=== PATIENT | male | born 1970 | race Caucasian/White ===

== ENCOUNTER 2018-07-29 18:01 | Emergency (ER) | payer SELFPAY ==
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
--- NOTE | 2018-07-29 19:23 | CR ---
INDICATION: Acute left knee pain. TECHNIQUE: Three view left knee. IMPRESSION: No fractures of the left knee. There is a left knee effusion with a suprapatellar probable calcified or ossified loose body on the lateral view. Narrowing and spurring is present about the patellofemoral space. No chondrocalcinosis. There is early osteophytic spurring about the lateral compartment and moderate narrowing in the medial compartment. Dictated by Ellis Correa MD @ Jul 29 2018 7:19PM Signed by Dr. Ellis Correa @ Jul 29 2018 7:21PM
== END 2018-07-29 19:08 | disposition home or self-care (01) ==
LOC: MW.ED 18:01
DX: S89.92XA Unspecified injury of left lower leg, initial encounter (principal); W22.8XXA Striking against or struck by other objects, initial encounter
CPT/HCPCS: 73562-26-LT; 73562-LT; 99283; 99283-25

== ENCOUNTER 2020-06-07 18:39 | Emergency (ER) | payer SELFPAY ==
[2020-06-07] MEDS ORDERED: diphenhydrAMINE 50 MG/ML SDV IVPUSH ONE ×2 (19:33→21:25)
[2020-06-07] MEDS ORDERED: Famotidine 20 MG/2 ML SDV IVPUSH ONE (19:33)
[2020-06-07] MEDS ORDERED: methylPREDNISolone Sodium Succinate 125 MG/2 ML SDV IVPUSH ONE (19:33)
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
== END 2020-06-07 22:55 | disposition home or self-care (01) ==
LOC: MW.ED 18:39
DX: L50.0 Allergic urticaria (principal); T45.525A Adverse effect of antithrombotic drugs, initial encounter; R00.0 Tachycardia, unspecified; I10 Essential (primary) hypertension; Z79.82 Long term (current) use of aspirin
CPT/HCPCS: 93005; 96374; 96375; 96376; 99283; J1200; J2930; J3490